=== PATIENT | female | born 1980 | race Caucasian/White ===

== ENCOUNTER 2020-05-23 14:39 | Emergency (ER) | payer OTHER ==
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
[2020-05-23 15:06] VITALS: TEMP 98.7
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
[2020-05-23 16:01] VITALS: BP 118/86; O2SAT 100
== END 2020-05-23 16:01 | disposition home or self-care (01) ==
LOC: ER 14:39
DX: S00.81XA Abrasion of other part of head, initial encounter (principal); R51.9 Headache, unspecified; Y04.0XXA Assault by unarmed brawl or fight, initial encounter; Y92.512 Supermarket, store or market as the place of occurrence of the external cause; Z87.891 Personal history of nicotine dependence